=== PATIENT | female | born 1950 | race Caucasian/White ===

== ENCOUNTER 2019-06-27 23:55 | Inpatient (IN) | payer MEDICARE ==
[~2019-06-27] VITALS: Ht 157.4 cm; Wt 42.4 kg
[2019-06-28] VITALS (15 sets, daily range): BP systolic 107–190; BP diastolic 61–105
[2019-06-28 00:12] LABS: BASO % 0.3 % (0.0-1.0); EOS % 0.2 % (1.0-4.0); HEMATOCRIT 44.9 % (37.0-47.0); HEMOGLOBIN 14.8 g/dl (12.0-16.0); LYMPH # 1.1 10*3/uL (1.3-4.4); LYMPH % 9.6 % (27.0-41.0); MEAN CELL VOLUME 94.9 fl (81.0-99.0); MEAN CORPUSCULAR HGB 31.3 pg (27.0-31.0); MONO # 0.3 10*3/uL (0.1-1.0); MONO % 2.8 % (3.0-9.0); NEUT # 9.7 10*3/uL (2.3-7.9); NEUT % 86.8 % (47.0-73.0); PLATELET COUNT AUTOMATED 217 10*3/uL (130-400); RED BLOOD COUNT 4.73 10*6/uL (4.10-5.10); RED CELL DISTRI WIDTH 13.5 % (0-14.5); WHITE BLOOD COUNT 11.1 10*3/uL (4.8-10.8)
[2019-06-28 00:25] LABS: ACT PARTIAL THROMBO TIME 26.5 SECONDS (20.0-32.1)
[2019-06-28 00:28] LABS: ALBUMIN 3.7 gm/dl (3.1-4.5); ALKALINE PHOSPHATASE 141 U/L (45-117); BUN 14 mg/dl (7-24); CHLORIDE 99 mmol/L (98-107); CREATININE 0.89 mg/dL (0.55-1.02); POTASSIUM 3.4 mmol/L (3.5-5.1); SGOT/AST 17 IU/L (3-35); SGPT/ALT 14 U/L (12-78); SODIUM 134 mmol/L (136-145); TOTAL PROTEIN 7.9 gm/dL (6.4-8.2)
[2019-06-28 00:36] LABS: TROPONIN I 0.152 ng/ml (<0.045)
[2019-06-28 07:04] LABS: HEMATOCRIT 39.1 % (37.0-47.0); HEMOGLOBIN 12.6 g/dl (12.0-16.0); MEAN CELL VOLUME 94.9 fl (81.0-99.0); MEAN CORPUSCULAR HGB 30.6 pg (27.0-31.0); MEAN CORPUSCULAR HGB CONC 32.2 g/dl (33.0-37.0); MEAN PLATELET VOLUME 10.4 fl (9.6-12.3); PLATELET COUNT AUTOMATED 191 10*3/uL (130-400); RED BLOOD COUNT 4.12 10*6/uL (4.10-5.10); RED CELL DISTRI WIDTH 13.5 % (0-14.5); WHITE BLOOD COUNT 9.2 10*3/uL (4.8-10.8)
[2019-06-28 07:21] LABS: ACT PARTIAL THROMBO TIME 35.2 SECONDS (20.0-32.1); INTERNATIONAL NORM RATIO 1.1 (2.0-3.5)
[2019-06-28 07:23] LABS: ALBUMIN 3.3 gm/dl (3.1-4.5); PHOSPHOROUS 4.8 mg/dL (2.5-4.9); POTASSIUM 3.5 mmol/L (3.5-5.1)
[2019-06-28 07:34] LABS: CREATININE 1.11 mg/dL (0.55-1.02); FREE T4 1.17 ng/dl (0.76-1.46); THYROID STIM HORMONE (HS) 1.33 uIU/ml (0.358-4.75); TOTAL PROTEIN 7.3 gm/dL (6.4-8.2)
[2019-06-28 07:54] LABS: VITAMIN D, 25-HYDROXY 8.1 ng/mL (30-100)
[2019-06-28 08:28] LABS: TOTAL CELLS COUNTED 100 #CELLS
[2019-06-28 08:29] LABS: PLATELET SUFFICIENCY NORMAL (NORMAL)
[2019-06-28 15:57] LABS: ABG BASE EXCESS 0.7 mmol/L (-2.0-2.0); ARTERIAL BLOOD GAS PH 7.427 (7.35-7.45)
[2019-06-29] VITALS: BP 131/79
[2019-06-29 07:21] LABS: CREATININE 1.13 mg/dL (0.55-1.02)
[2019-06-29 08:00] VITALS: BP 127/69
[2019-06-29 12:00] VITALS: BP 138/74
[2019-06-29 16:00] VITALS: BP 137/73
[2019-06-29 20:00] VITALS: BP 157/75
[2019-06-30] VITALS: BP 158/77
[2019-06-30 06:19] LABS: BASO % 0.1 % (0.0-1.0); HEMOGLOBIN 12.6 g/dl (12.0-16.0); MEAN CELL VOLUME 96.1 fl (81.0-99.0); MEAN CORPUSCULAR HGB CONC 32.3 g/dl (33.0-37.0); MONO # 0.9 10*3/uL (0.1-1.0); MONO % 6.2 % (3.0-9.0); NEUT # 12.9 10*3/uL (2.3-7.9); PLATELET COUNT AUTOMATED 207 10*3/uL (130-400); RED BLOOD COUNT 4.06 10*6/uL (4.10-5.10); RED CELL DISTRI WIDTH 13.4 % (0-14.5); WHITE BLOOD COUNT 14.9 10*3/uL (4.8-10.8)
[2019-06-30 06:33] LABS: ALBUMIN 3.3 gm/dl (3.1-4.5); ALKALINE PHOSPHATASE 100 U/L (45-117); BUN 29 mg/dl (7-24); CHLORIDE 100 mmol/L (98-107); CREATININE 0.87 mg/dL (0.55-1.02); PHOSPHOROUS 2.9 mg/dL (2.5-4.9); POTASSIUM 3.7 mmol/L (3.5-5.1); SGOT/AST 24 IU/L (3-35); SGPT/ALT 31 U/L (12-78); SODIUM 134 mmol/L (136-145); TOTAL PROTEIN 7.2 gm/dL (6.4-8.2)
[2019-06-30 08:00] VITALS: BP 168/78
[2019-06-30 12:00] VITALS: BP 145/88
[2019-06-30 12:16] LABS: ACT PARTIAL THROMBO TIME 26.6 SECONDS (20.0-32.1)
[2019-06-30 16:00] VITALS: BP 124/64
[2019-06-30 20:00] VITALS: BP 131/66
[2019-07-01] VITALS (9 sets, daily range): BP systolic 130–174; BP diastolic 70–87
[2019-07-01 06:33] LABS: CHLORIDE 102 mmol/L (98-107); CREATININE 0.72 mg/dL (0.55-1.02); POTASSIUM 3.6 mmol/L (3.5-5.1); SODIUM 140 mmol/L (136-145)
[2019-07-01 06:37] LABS: BUN 18 mg/dl (7-24)
[2019-07-02 06:58] LABS: BASO % 0.1 % (0.0-1.0); EOS % 0.1 % (1.0-4.0); HEMATOCRIT 38.7 % (37.0-47.0); HEMOGLOBIN 12.5 g/dl (12.0-16.0); LYMPH # 1.5 10*3/uL (1.3-4.4); LYMPH % 19.2 % (27.0-41.0); MEAN CELL VOLUME 96.8 fl (81.0-99.0); MEAN CORPUSCULAR HGB 31.3 pg (27.0-31.0); MEAN CORPUSCULAR HGB CONC 32.3 g/dl (33.0-37.0); MEAN PLATELET VOLUME 10.8 fl (9.6-12.3); MONO # 0.7 10*3/uL (0.1-1.0); MONO % 9.2 % (3.0-9.0); NEUT # 5.5 10*3/uL (2.3-7.9); NEUT % 70.9 % (47.0-73.0); PLATELET COUNT AUTOMATED 214 10*3/uL (130-400); RED CELL DISTRI WIDTH 13.2 % (0-14.5); WHITE BLOOD COUNT 7.8 10*3/uL (4.8-10.8)
[2019-07-02 08:00] VITALS: BP 161/74
[2019-07-02] MEDS ORDERED: METOPROLOL SUCC25 M2 PO (10:44)
[2019-07-02] MEDS ORDERED: ISORDIL10 M1 PO (10:44)
[2019-07-02] MEDS ORDERED: APRESOLINE10 MG PO (10:44)
[2019-07-02] MEDS ORDERED: AVPAK AZITHROM250 MG PO (10:44)
[2019-07-02] MEDS ORDERED: NICODERM T (10:44)
[2019-07-02] MEDS ORDERED: ASPIRIN ADULT L81 M2 PO (10:44)
[2019-07-02 12:08] LABS: ACID FAST SPEC PROCESSING Concentration (.)
== END 2019-07-02 12:20 | disposition home health service (06) | DRG 871 ==
LOC: ED 23:55 → EDHOLD 06-28 02:36 → 5E 06-28 02:36
PROVIDERS: Emergency Medicine; Internal Medicine; Internal Medicine Critical Care Medicine; ADMIT Internal Medicine
PROC: 5A09357 Assistance with Respiratory Ventilation, Less than 24 Consecutive Hours, Continuous Positive Airway Pressure (ICD-10-PCS; principal; 2019-06-28)
PROC: 5A09357 Assistance with Respiratory Ventilation, Less than 24 Consecutive Hours, Continuous Positive Airway Pressure (ICD-10-PCS; 2019-06-29)
PROC: 5A09357 Assistance with Respiratory Ventilation, Less than 24 Consecutive Hours, Continuous Positive Airway Pressure (ICD-10-PCS; 2019-06-30)
PROC: 0BC78ZZ Extirpation of Matter from Left Main Bronchus, Via Natural or Artificial Opening Endoscopic (ICD-10-PCS; 2019-07-01)
PROC: 0BC38ZZ Extirpation of Matter from Right Main Bronchus, Via Natural or Artificial Opening Endoscopic (ICD-10-PCS; 2019-07-01)
PROC: 0BC88ZZ Extirpation of Matter from Left Upper Lobe Bronchus, Via Natural or Artificial Opening Endoscopic (ICD-10-PCS; 2019-07-01)
PROC: 0BC98ZZ Extirpation of Matter from Lingula Bronchus, Via Natural or Artificial Opening Endoscopic (ICD-10-PCS; 2019-07-01)
PROC: 0BC58ZZ Extirpation of Matter from Right Middle Lobe Bronchus, Via Natural or Artificial Opening Endoscopic (ICD-10-PCS; 2019-07-01)
PROC: 0BCB8ZZ Extirpation of Matter from Left Lower Lobe Bronchus, Via Natural or Artificial Opening Endoscopic (ICD-10-PCS; 2019-07-01)
PROC: 0BC18ZZ Extirpation of Matter from Trachea, Via Natural or Artificial Opening Endoscopic (ICD-10-PCS; 2019-07-01)
PROC: 0BC48ZZ Extirpation of Matter from Right Upper Lobe Bronchus, Via Natural or Artificial Opening Endoscopic (ICD-10-PCS; 2019-07-01)
PROC: 0BC68ZZ Extirpation of Matter from Right Lower Lobe Bronchus, Via Natural or Artificial Opening Endoscopic (ICD-10-PCS; 2019-07-01)
DX: A41.9 Sepsis, unspecified organism (principal); I21.4 Non-ST elevation (NSTEMI) myocardial infarction; J96.21 Acute and chronic respiratory failure with hypoxia; I50.23 Acute on chronic systolic (congestive) heart failure; J18.9 Pneumonia, unspecified organism; I16.1 Hypertensive emergency; E87.1 Hypo-osmolality and hyponatremia; I31.3 Pericardial effusion (noninflammatory); N17.9 Acute kidney failure, unspecified; I47.1 Supraventricular tachycardia; J20.9 Acute bronchitis, unspecified; Z66 Do not resuscitate; Z51.5 Encounter for palliative care; K58.9 Irritable bowel syndrome, unspecified; J43.2 Centrilobular emphysema; J43.1 Panlobular emphysema; F17.210 Nicotine dependence, cigarettes, uncomplicated; F10.10 Alcohol abuse, uncomplicated; E87.6 Hypokalemia; R73.9 Hyperglycemia, unspecified; Z71.6 Tobacco abuse counseling; Z84.89 Family history of other specified conditions; Z82.49 Family history of ischemic heart disease and other diseases of the circulatory system; Z80.3 Family history of malignant neoplasm of breast

== ENCOUNTER → 2019-09-27 | Outpatient (CLI) | payer MEDICARE ==
[~2019-09-27] MED LIST: APRESOLINE10 MG PO; ASPIRIN ADULT L81 M2 PO; AVPAK AZITHROM250 MG PO; HYDRALAZINE10 MG PO; ISORDIL10 M1 PO; METOPROLOL SUCC25 M2 PO; NICODERM T; PROVENTIL HFA6.7 GM INH; SYMB160 INH
--- NOTE | 2019-09-27 07:10 | NUR ---
INFORMED CONSENT OBTAINED FOR LEXISCAN NUCLEAR STRESS TEST WITH DR. CARRANZA. RESTING EKG NSR WITH A RESTING HR OF 70 WITH BP OF 144/70. HAS OCCASIONAL PVC'S AND POOR R WAVE PROGRESSION. LUNGS WITH DIMINISHED BS WITH SPO2 OF 97% WITH NASAL 02 AT 2L. PT COMPLETED A 1:00 LEXISCAN PROTOCOL RECEIVING LEXISCAN 0.4 MG IV OVER 10 SECONDS. HAD NO CHEST PAIN BUT DID C/O SHORTNESS OF BREATH AND ABDOMINAL CRAMPING THAT WAS RELIEVED IN RECOVERY. DEVELOPED ST DEPRESSION IN LEADS II,III,AVF AND V5-V6. HAD A PEAK HR OF 113 WITH BP OF 160/90. LAST RECOVERY HR OF 96 WITH BP OF 166/84. AWAITING SCANNING IN STABLE CONDITION.
== END | disposition home or self-care (01) ==
LOC: CARD 00:19
DX: I51.7 Cardiomegaly (principal); I21.4 Non-ST elevation (NSTEMI) myocardial infarction